=== PATIENT | female | born 1955 | race Caucasian/White ===

== ENCOUNTER 2019-04-10 17:38 | Emergency (ER) | payer OTHER, MEDICAID ==
[~2019-04-10] VITALS: Ht 167.6 cm; Wt 72.6 kg
[2019-04-10 17:38] VITALS: BP_SYST 141
--- NOTE | 2019-04-10 17:38 | NUR ---
BROUGHT BACK TO BED #4 AND TRIAGED. REPORT GIVEN TO NELSON
--- NOTE | 2019-04-10 17:48 | NUR ---
Patient comes to ER on foot walking, AOx4 and verbal. Patient has complaint of pain to lower back, abdomen and RT leg. Pain to back and abdomen x2 days, and leg pain is chronic. Patient denies SOB, denies chest pain. No other complaint or injury at this time.
--- NOTE | 2019-04-10 18:00 | NUR ---
Dr Braun at bedside for ER evaluation
--- NOTE | 2019-04-10 18:45 | NUR ---
Patient taken to radiology for KUB
--- NOTE | 2019-04-10 19:20 | NUR ---
Medication given at this time. Did not save on EMAR.
[2019-04-10 19:27] VITALS: BP_SYST 137
--- NOTE | 2019-04-10 19:27 | NUR ---
Patient given written and verbal discharge instructions and verbalizes understanding. ER MD discussed with patient the results and treatment provided. Patient in stable condition. ID arm band removed. Rx of Cirpo and Pyridium given. Patient educated on pain management and to follow up with PMD. Pain Scale 0/10. Opportunity for questions provided and answered. Medication side effect fact sheet provided.
[2019-04-10] MEDS ORDERED: MAGNESIUM CITRATE 300 ML ORAL SOLUTION PO ONE (19:30)
[2019-04-10] MEDS ORDERED: CIPROFLOXACIN HCL 500 MG TABLET PO ONE (19:30)
[2019-04-10] MEDS ORDERED: PHENAZOPYRIDINE HCL 100 MG TABLET PO ONE (19:30)
== END 2019-04-10 19:27 | disposition home or self-care (01) ==
LOC: SED 17:38
DX: K59.00 Constipation, unspecified (principal); N39.0 Urinary tract infection, site not specified; M19.90 Unspecified osteoarthritis, unspecified site; R03.0 Elevated blood-pressure reading, without diagnosis of hypertension; Z88.2 Allergy status to sulfonamides
CPT/HCPCS: 74018; 99284

== ENCOUNTER 2019-05-19 12:12 | Emergency (ER) | payer OTHER, MEDICAID ==
[~2019-05-19] VITALS: Ht 167.6 cm; Wt 74.8 kg
[2019-05-19 12:22] VITALS: BP_SYST 156
[2019-05-19 14:53] VITALS: BP_SYST 156
== END 2019-05-19 14:53 | disposition home or self-care (01) ==
LOC: SED 12:12
DX: S46.911A Strain of unspecified muscle, fascia and tendon at shoulder and upper arm level, right arm, initial encounter (principal); Z88.2 Allergy status to sulfonamides; X50.9XXA Other and unspecified overexertion or strenuous movements or postures, initial encounter; Y93.89 Activity, other specified; Y92.89 Other specified places as the place of occurrence of the external cause; Y99.8 Other external cause status
CPT/HCPCS: 73030; 99283

== ENCOUNTER 2020-01-29 13:31 | Emergency (ER) | payer OTHER, MEDICAID ==
[~2020-01-29] VITALS: Ht 167.6 cm; Wt 74.8 kg
[2020-01-29 13:31] VITALS: BP_SYST 148
--- NOTE | 2020-01-29 13:37 | NUR ---
Patient triaged and placed in waiting room. VSS and patient appears in no acute distress at this time. Accompanied by SELF, awaiting available bed, and MD notified of need for MSE.
--- NOTE | 2020-01-29 15:00 | NUR ---
DR BARKSDALE EVALUATING PT IN TRIAGE ROOM
[2020-01-29 16:00] VITALS: BP_SYST 131
[2020-01-29 16:33] LABS: BILIRUBIN,URINE NEGATIVE (NEGATIVE); BLOOD, URINE 3+ (NEGATIVE); CLARITY/URINE SL CLOUDY (CLEAR); COLOR,URINE YELLOW (YELLOW); GLUCOSE,URINE NEGATIVE (NEGATIVE); KETONES,URINE NEGATIVE (NEGATIVE); LEUKOCYTE ESTERASE ,URINE 2+ (NEGATIVE); NITRITE, URINE NEGATIVE (NEGATIVE); PROTEIN URINE TRACE (NEGATIVE); UROBILINOGEN,URINE 0.2 (0.2-1.0)
[2020-01-29 17:19] LABS: RBC,URINE 50-80 /HPF (0-3)
[2020-01-29 17:21] LABS: BACTERIA,URINE FEW /HPF (None Seen); MUCUS,URINE None Seen /LPF (None Seen); WBC,URINE >100 /HPF (0-3)
--- NOTE | 2020-01-29 17:25 | NUR ---
Patient given written and verbal discharge instructions and verbalizes understanding. ER MD discussed with patient the results and treatment provided. Patient in stable condition. ID arm band removed. Rx of PYRIDIUM, MACROBID given. Patient educated on pain management and to follow up with PMD. Pain Scale 0/10. Opportunity for questions provided and answered. Medication side effect fact sheet provided.
== END 2020-01-29 17:25 | disposition home or self-care (01) ==
LOC: SED 13:31
DX: N39.0 Urinary tract infection, site not specified (principal); Z88.2 Allergy status to sulfonamides; Z85.9 Personal history of malignant neoplasm, unspecified
CPT/HCPCS: 81000-TC; 87086; 87186-TC; 99283

== ENCOUNTER 2020-04-19 10:05 | Emergency (ER) | payer OTHER, MEDICAID ==
[~2020-04-19] VITALS: Ht 167.6 cm; Wt 74.8 kg
[2020-04-19 10:12] VITALS: BP_SYST 150
--- NOTE | 2020-04-19 10:22 | NUR ---
Patient to ER bed 7 to gown for evaluation. Side rails up. Report given to AGNIESZKA HOOPER.
--- NOTE | 2020-04-19 10:28 | NUR ---
NORMAN Reddy at bedside examining patient.
[2020-04-19] MEDS ORDERED: cefTRIAXone 1 GM in LIDOCAINE 1%, 20 ML MDV 2.1 ML IM ONE (10:30)
--- NOTE | 2020-04-19 10:31 | NUR ---
Pt in chair in room 7. VSS and pt is alert and oriented. Urine sample obtained.
--- NOTE | 2020-04-19 10:47 | NUR ---
Patient given written and verbal discharge instructions and verbalizes understanding. ER MD Reddy discussed with patient the results and treatment provided. Patient in stable condition. ID arm band removed. Rx of macrobid given. Patient educated on pain management and to follow up with PMD. Pain Scale 0/10. Opportunity for questions provided and answered. Medication side effect fact sheet provided.
== END 2020-04-19 10:48 | disposition home or self-care (01) ==
LOC: SED 10:05
DX: N39.0 Urinary tract infection, site not specified (principal); Z85.9 Personal history of malignant neoplasm, unspecified; Z88.2 Allergy status to sulfonamides
CPT/HCPCS: 81002; 96372; 99283; J0696; J2001

== ENCOUNTER 2020-06-17 08:24 | Emergency (ER) | payer OTHER, MEDICAID ==
[~2020-06-17] VITALS: Ht 167.6 cm; Wt 74.8 kg
[2020-06-17 08:31] VITALS: BP_SYST 144
--- NOTE | 2020-06-17 08:37 | NUR ---
Patient to ER bed 4 to gown for evaluation. Side rail up.
--- NOTE | 2020-06-17 08:40 | NUR ---
pt arrives from home w/ c/o urinary dysuria and urinary frequency x 2 days. Pt is currently afebrile. No other c/o at the moment
--- NOTE | 2020-06-17 08:45 | NUR ---
UA collected and sent to the lab
--- NOTE | 2020-06-17 08:57 | NUR ---
ER at bedside examining patient.
[2020-06-17] MEDS ORDERED: PHENAZOPYRIDINE HCL 100 MG TABLET PO ONE (09:00)
[2020-06-17 09:04] LABS: BILIRUBIN,URINE NEGATIVE (NEGATIVE); BLOOD, URINE 3+ (NEGATIVE); COLOR,URINE YELLOW (YELLOW); GLUCOSE,URINE NEGATIVE (NEGATIVE); KETONES,URINE NEGATIVE (NEGATIVE); LEUKOCYTE ESTERASE ,URINE 2+ (NEGATIVE); NITRITE, URINE POSITIVE (NEGATIVE); PH,URINE 5.5 (5.0-8.0); PROTEIN URINE 1+ (NEGATIVE); UROBILINOGEN,URINE 0.2 (0.2-1.0)
--- NOTE | 2020-06-17 09:10 | NUR ---
medicated the pt w/ Rocephin IM and pydridium per MD order
[2020-06-17] MEDS ORDERED: cefTRIAXone 1 GM in LIDOCAINE 1%, 20 ML MDV 2.1 ML IM ONE (09:15)
[2020-06-17 09:16] VITALS: BP_SYST 144
--- NOTE | 2020-06-17 09:17 | NUR ---
Patient given written and verbal discharge instructions and verbalizes understanding. ER MD discussed with patient the results and treatment provided. Patient in stable condition. ID arm band removed. Rx of Macrobid and Pyridium given. Patient educated on pain management and to follow up with PMD. Pain Scale 3/10. Opportunity for questions provided and answered. Medication side effect fact sheet provided.
[2020-06-17 09:22] LABS: CLARITY/URINE HAZY (CLEAR)
[2020-06-17 09:23] LABS: BACTERIA,URINE MODERATE /HPF (None Seen); RBC,URINE 20-50 /HPF (0-3); WBC,URINE 20-50 /HPF (0-3)
== END 2020-06-17 09:17 | disposition home or self-care (01) ==
LOC: SED 08:24
DX: N39.0 Urinary tract infection, site not specified (principal); Z88.2 Allergy status to sulfonamides; Z85.3 Personal history of malignant neoplasm of breast
CPT/HCPCS: 81000; 87086; 96372; 99283; J0696; J2001